=== PATIENT | female | born 1935 | race Caucasian/White ===

== ENCOUNTER 2017-05-22 09:22 | Observation (INO) | payer OTHER ==
--- NOTE | 2017-05-22 01:10 | GHP ---
[f rep st] PREOP HISTORY AND PHYSICAL DATE OF ADMISSION: 05/22/2017 CURRENT COMPLAINTS: Left shoulder pain. HISTORY OF PRESENT ILLNESS: The patient is an 81-year-old female who had previously undergone a lef t reverse total shoulder arthroplasty, was slow with recovery with regard to physical therapy. Subs equent x-rays revealed that the hemispherical head component has come loose from its base plate. Анна duffy wishes to have surgery in order to resolve the problem. ALLERGIES: Include beta blockers, codeine, corticosteroids, enalapril, nifedipine, penicillins, Pne umovax and sulfa medications. CURRENT MEDICATIONS: Include aspirin, atorvastatin, Benicar, Bystolic, furosemide, Januvia, levothy roxine, Lumigan, metformin, Nexium, omeprazole, oxycodone, and Uloric. PRIOR MEDICAL PROBLEMS: Include arthritis, diabetes, high cholesterol, coronary artery disease, hig h blood pressure, and thyroid problems with Raynaud and vitiligo. PRIOR SURGERIES: Include a left shoulder x2, cholecystectomy, right total hip, left total knee, malick ateral cataract surgery. Rectocele surgery. Right total knee. Right rotator cuff repair. Hystere ctomy and oophorectomy. Lumpectomy. Appendectomy. SOCIAL HISTORY: She lists no smoking or alcohol history. PHYSICAL EXAM: HEENT: Patient's pupils are equal, round, and reactive to light. CHEST: Clear to auscultation. HEART: Regular rate and rhythm. ABDOMEN: Soft and nontender. MUSCULOSKELETAL: Le ft arm has no pain to passive range of motion. She has weakness to external rotation and abduction. X-ray exam reveals the hemispherical component disarticulated from the base plate. ASSESSMENT AND PLAN: The patient is status post left reverse total shoulder failure. Plan is to go to the operating room for revision of the hemispherical component. /[id number]/MODL
--- NOTE | 2017-05-22 07:15 | PDHPUP ---
History & Physical Update H&P update statement: This history and physical update is based on an assessment of the patient which was completed after admission or registration (within 24 hours), but prior to the surgery/procedure. H&P update: H&P reviewed & patient examined, no change in patient's condition since H&P completed
[~2017-05-22 09:22] MED LIST: NALOXONE HCL 0.4 MG/ML INJ IVP PRN; ONDANSETRON 4 MG/2 ML VIAL IVP PRN; ROPIVACAINE 0.2% 80 MG, EPINEPHrine 0.2 MG, KETOROLAC TROMETHAMINE 30 MG, morphINE 10 M... IU ONE; VANCOMYCIN HCL/NORMAL SALINE 250 ML IV ONE; fentaNYL 100 MCG/2 ML INJ IVP PRN
[2017-05-22] MEDS ORDERED: THROMBIN (BOVINE) 5,000 UNIT VIAL TP ONE (10:21)
[2017-05-22] MEDS ORDERED: CALCIUM CHLORIDE 1 GM/10 ML INJ ONE (10:21)
[2017-05-22] MEDS ORDERED: POLYMYXIN B SULFATE 500,000 UNIT/10 ML SYR IRR ONE (10:21)
[2017-05-22] MEDS ORDERED: BUPIVACAINE/EPI 0.5% 30 ML SDV ONE (10:21)
[2017-05-22] MEDS ORDERED: BACITRACIN 50,000 UNITS/10 ML SYR IRR ONE (10:22)
[2017-05-22] MEDS ORDERED: LR 1,000 ML IV ONE (12:07)
[2017-05-22 12:52] LABS: % IMMATURE GRANULYOCYTES 0.2 % (0.0-1.1); ABSOLUTE IMMATURE GRANULOCYTES 0.01 10^3/uL (0.00-0.10); ADD DIFF? NO; ADD MORPH? NO; ADD SCAN? NO; ATYPICAL LYMPHOCYTE FLAG 10 (0-99); FRAGMENT RBC FLAG 0 (0-99); HEMATOCRIT 36.3 % (38.0-47.0); HEMOGLOBIN 12.1 g/dL (12.6-16.3); LEFT SHIFT FLG 0 (0-99); LIPEMIA HEMOLYSIS FLAG 80 (0-99); MEAN CELL HEMOGLOBIN 30.8 pg (27.9-34.1); MEAN CELL HEMOGLOBIN CONCENTR. 33.3 g/dL (32.4-36.7); MEAN CELL VOLUME 92.4 fL (81.5-99.8); MEAN PLATELET VOLUME 10.1 fL (8.7-11.7); PLATELET CLUMPS FLAG 0 (0-99); PLATELET COUNT 290 10^3/uL (150-400); RED BLOOD CELL COUNT 3.93 10^6/uL (4.18-5.33); RED CELL DISTRIBUTION WIDTH 14.1 % (11.5-15.2)
[2017-05-22] MEDS: LR 1,000 ML IV SCH (13:02)
[2017-05-22 13:06] LABS: ANION GAP 14 mEq/L (8-16); CALCIUM 10.4 mg/dL (8.5-10.4); CARBON DIOXIDE 26 mEq/l (22-31); CHLORIDE 103 mEq/L (97-110); CREATININE 0.8 mg/dL (0.6-1.0); GLOMERULAR FILTRATION RATE > 60; GLUCOSE 118 mg/dL (70-100); POTASSIUM 3.8 mEq/L (3.5-5.2); SODIUM 143 mEq/L (134-144)
[2017-05-22] MEDS ORDERED: VANCOMYCIN 1 GM/NS 250 ML BAG IV ONE (13:20)
--- NOTE | 2017-05-22 13:44 | PDANEPAE ---
ANE History of Present Illness 81 year old female presents for partial revision of left total shoulder. ANE Past Medical History - Cardiovascular History Hx Hypertension: Yes Hx Arrhythmias: No Hx Chest Pain: No Hx Coronary Artery / Peripheral Vascular Disease: Yes Hx CHF / Valvular Disease: No Cardiovascular History Comment: CAD. HYPERCHOLESTEROLEMIA - Pulmonary History Hx COPD: No Hx Asthma/Reactive Airway Disease: No Hx Recent Upper Respiratory Infection: No Hx Oxygen in Use at Home: No Hx Sleep Apnea: No Sleep Apnea Screening Result - Last Documented: Positive Pulmonary History Comment: ROBERT POSITIVE MILD DOESN'T USE CPAP - Neurologic History Hx Cerebrovascular Accident: No Hx Seizures: No Hx Dementia: No - Endocrine History Hx Diabetes: Yes Hypothyroid: Yes Hyperthyroid: No Obesity: no Endocrine History Comment: NIDDM - Renal History Hx Renal Disorders: No - Liver History Hx Hepatic Disorders: No - Neurological & Psychiatric Hx Hx Neurological and Psychiatric Disorders: No - Cancer History Hx Cancer: No Cancer History Comment: 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 LT TOTAL SHLDR REPLACEMENT HAS COME OUT OF PLACE. RAYNAUDS - Chronic Pain History Chronic Pain: Yes (LEFT SHOULDER) - Surgical History [facility] Sur[facility]. 2 RECTOCELE'S. 3 MISCARRIAGES AND D&C. HYSTERECTOMY AND APPY. LEFT KNEE SCOPE. BILATERAL KNEE REPLACEMENTS. RIGHT HIP REPLACEMENT. BREAST BIOPSY X2 ON LEFT. ROTATOR CUFF ON RIGHT SIDE. STENTS PLACED 01/2000 AND 02/2000 X4. BILATERAL CATARACTS. ANE Review of Systems - Exercise capacity Exercise capacity: <4 METS METS (RN): 3 METS ANE Patient History - Allergies Allergies/Adverse Reactions: Beta-Blockers (Beta-Adrenergic Bloc Allergy (Severe, Verified 07/10/16 09:35) DEPRESSION enalapril [Enalapril] Allergy (Severe, Verified 07/10/16 09:35) COUGH nifedipine [From Adalat] Allergy (Severe, Verified 07/10/16 09:35) HEADACHE Penicillins Allergy (Severe, Verified 07/10/16 09:35) Hives pneumococcal 23-valent polysacchari [From Pneumovax 23] Allergy (Severe, Verified 07/10/16 09:35) WHEEZING AND LOCAL ERYTHEMA Sulfa (Sulfonamide Antibiotics) Allergy (Severe, Verified 07/10/16 09:35) Hives codeine [Codeine] Allergy (Verified 07/10/16 09:35) PRASOCIN Allergy (Severe, Uncoded 01/12/11 14:48) NASAL CONGESTION SALISILATE Allergy (Severe, Uncoded 01/12/11 14:48) WHEEZING AND HOARSENESS - Home Medications Home medications: home medication list seen and reviewed Home Medications: Atorvastatin Calcium [Lipitor 40 mg (*)] 40 mg PO DAILY 09/14/14 [Last Taken 04/30] Bimatoprost 0.01% [Lumigan 0.01% (*)] 1 drops EACHEYE HS 09/14/14 [Last Taken ] Levothyroxine [Synthroid 50 mcg (*)] 50 mcg PO DAILY06 09/14/14 [Last Taken 05/31] Febuxostat [Uloric] 40 mg PO HS 05/21/17 [Last Taken 05/21/17] Furosemide [Lasix 20 MG (*)] 20 mg PO DAILY 05/21/17 [Last Taken 05/21/17] Olmesartan Medoxomil [Benicar] 40 mg PO DAILY 05/21/17 [Last Taken 05/22/17] SITAGLIPTIN PHOSPHATE [Januvia 50 mg] 50 mg PO DAILY 05/21/17 [Last Taken ] metFORMIN HCL [Glucophage 500 mg (*)] 1,000 mg PO BIDMEAL 05/21/17 [Last Taken 05/21/17] - NPO status NPO Status: no food or drink >8 hours NPO Since - Liquids (Date): 05/21/17 NPO Since - Liquids (Time): 15:00 NPO Since - Solids (Date): 05/21/17 NPO Since - Solids (Time): 15:00 - Smoking Hx Smoking Status: Never smoked - Alcohol Use Alcohol Use: Sober - Family Anes Hx Family Anes Hx: neg - N/A Family Hx Anesthesia Complications: NONE ANE Labs/Vital Signs - Labs Result Diagrams: 05/22/17 12:40 05/22/17 12:40 - Vital Signs Vital Signs: reviewed preoperatively; see RN documention for details Blood Pressure: 156/84 Heart Rate: 58 Respiratory Rate: 18 O2 Sat (%): 95 Height: 147.32 cm Weight: 53.977 kg ANE Physical Exam - ASA Status ASA Status: III
[2017-05-22] MEDS ORDERED: PROPOFOL 200 MG/20 ML VIAL ONE (13:54)
[2017-05-22] MEDS ORDERED: fentaNYL 100 MCG/2 ML INJ ONE ×2 (13:55→15:35)
[2017-05-22] MEDS ORDERED: ROPIVACAINE HCL 150 MG/30 ML INJ ONE (13:55)
[2017-05-22] MEDS ORDERED: ROCURONIUM 100 MG/10 ML VIAL ONE (13:55)
[2017-05-22] MEDS ORDERED: PHENYLEPHRINE HCL 100 MCG/ML SYR ONE ×2 (14:32→15:43)
[2017-05-22] MEDS ORDERED: epHEDrine SULFATE 10 MG/ML SYR ONE ×2 (14:36→15:44)
[2017-05-22] MEDS ORDERED: ONDANSETRON 4 MG/2 ML VIAL ONE (15:35)
[2017-05-22] MEDS ORDERED: SUGAMMADEX SODIUM 200 MG/2 ML VIAL IVP ONE (15:36)
[2017-05-22] MEDS ORDERED: LACTULOSE 20 GM/30 ML UDCUP PO PRN (16:04)
[2017-05-22] MEDS ORDERED: ONDANSETRON 4 MG/2 ML VIAL IVP PRN (16:04)
[2017-05-22] MEDS ORDERED: BISACODYL 10 MG SUPP PR PRN (16:04)
[2017-05-22] MEDS ORDERED: POLYETHYLENE GLYCOL 3350 17 GM PKT PO PRN (16:04)
[2017-05-22] MEDS ORDERED: MAGNESIUM HYDROXIDE 30 ML UDCUP PO PRN (16:04)
--- NOTE | 2017-05-22 16:04 | POSTOPPROG ---
Post Op Note Date of Operation: 05/22/17 Surgeon: Iza Gonzalez Chemical Compounder: coltrain Anesthesia: LMA, Other (Specify) Pre-op Diagnosis: l reverse tsa dislocation Procedure: l reverse tsa head revision Inf/Abcess present in the surg proc area at time of surgery?: No Depth: Deep Incisional (Fascial) EBL: 50-100
[2017-05-22] MEDS ORDERED: VANCOMYCIN HCL/NORMAL SALINE 250 ML IV SCH (16:30)
--- NOTE | 2017-05-22 17:01 | POSTANESTH ---
Post Anesthetic Evaluation Cardiovascular Status: Normal, Stable Respiratory Status: Normal, Stable Level of Consciousness/Mental Status: Can Participate in Eval Pain Control: Adequate, Prn Tx Ordered Nausea/Vomiting Control: Adequate, Prn Tx Ordered Complications Possibly Related to Anesthesia: None Noted
[2017-05-22] MEDS: metFORMIN HCL 500 MG TAB PO SCH ×2 (18:59→20:06)
[2017-05-22] MEDS: KETOROLAC 15 MG/1 ML SDV IVP SCH (18:59)
[2017-05-22] MEDS: traMADol 50 MG TAB PO SCH ×2 (18:59→20:06)
--- NOTE | 2017-05-22 20:03 | GOP ---
[f rep st] OPERATIVE REPORT DATE OF OPERATION: 05/22/2017 SURGEON: Iza Gonzalez MD ENTERPRISE APPLICATION ANALYST: ARMANDO Hester, LSA, whose presence was medically necessary. ANESTHESIA: Endotracheal intubation plus scalene block per Surgeon's request. PREOPERATIVE DIAGNOSIS: Left reverse total shoulder hemisphere dislocation. POSTOPERATIVE DIAGNOSIS: Left reverse total shoulder hemisphere dislocation. PROCEDURE PERFORMED: Left reverse total shoulder hemisphere revision. FINDINGS: INDICATIONS: This is an 81-year-old female who had previously undergone a left total shoulder arthr oplasty which had been doing well. She had some recent pain, and an x-ray exam revealed the hemisph ere to have become dislodged from the baseplate. She wished to have surgery in order to resolve the problem. DESCRIPTION OF PROCEDURE: Patient brought to the operating room after the left side had been identi fied as the correct side by the patient, nurse, physician. Once in the operating room, she was give n a scalene block on the left side and then placed under anesthesia using endotracheal intubation. Once asleep, she was placed in a beach chair position with the left upper extremity sterilely preppe d and draped in usual fashion using GSI solution. Once prepped and draped, using the prior scar, a linear incision was made starting in the anterior portion shoulder near the coracoid and extending t oward the axillary crease. Bleeding was controlled using electrocautery. Using the prior scar asso ciated with the deltopectoral interval, dissection was carried down deep, following layer the coraco brachialis fascia was identified, dissected and retracted medially, gaining access into the joint. The head was easily found and was easily removed. Examination of the plastics associated with the humeral component showed no wear across it. The bas e plate appeared to be intact. Soft tissue dissection was done around the base plate in order to re move scar tissue from around the area. It was thoroughly irrigated with antibiotic solution. A tri al hemispheric head was put into place, noted to fit securely. Therefore, an eccentric 5 mm Glenosp here from [facility] was put into place. Once tapped into place, it was tugged upon bob roujigneshly in order to ensure good fit and solid fixation. It was then impacted again with a secondary impactor in order to hold it in place. The patient's arm was then able to go through a range of motion, appeared to be stable. She did not have laxity through the area. Therefore, the wound was thoroughly irrigated with antibiotic soluti on and was closed in layers to include 0 Vicryl suture for the fascia overlying the capsule and reymundo cobrachialis, with plasmagel placed intra-articularly. The deltopectoral interval was closed with p lasmagel placed deep to the deltopectoral interval. The skin was closed using a combination of 0 Vi cryl and 2-0 Vicryl sutures in subcutaneous layers, and a 3-0 V-Loc suture in a running subcuticular stitch for the skin. The wound was dressed with Steri-Strips, with 10 cc of Marcaine infused aroun d the actual incision itself. The wound was then dressed with Xeroform, 4 x 4, and Tegaderm. She was completely undraped in the operating room, had a sling placed on the left upper extremity. She was woken up, extubated, transferred onto a stretcher, and sent to recovery room in good conditi on. This is a 23-hour observation operation report. /[id number]/MODL
[2017-05-22] MEDS: SENNOSIDES/DOCUSATE SODIUM TAB PO SCH (20:06)
[2017-05-22] MEDS: BIMATOPROST 0.01% 2.5 ML OPHT.BTL EACHEYE SCH (20:34)
[2017-05-22] MEDS ORDERED: NON-FORMULARY NEW DRUG (Febuxostat [Uloric] 40 MG) PO SCH ×2 (21:00)
[2017-05-23] MEDS: KETOROLAC 15 MG/1 ML SDV IVP SCH ×3 (02:09→11:12)
[2017-05-23] MEDS: LEVOTHYROXINE 50 MCG TAB PO SCH (06:17)
[2017-05-23] MEDS: traMADol 50 MG TAB PO SCH ×3 (06:18→17:42)
[2017-05-23] MEDS: SENNOSIDES/DOCUSATE SODIUM TAB PO SCH ×2 (08:03→22:19)
[2017-05-23] MEDS: ATORVASTATIN CALCIUM 40 MG TAB PO SCH (08:03)
[2017-05-23] MEDS: HYDROCODONE/APAP 5/325 TAB PO PRN ×2 (08:03→22:20)
[2017-05-23] MEDS: LR 1,000 ML IV SCH (08:07)
[2017-05-23] MEDS: FUROSEMIDE 20 MG TAB PO SCH (08:14)
[2017-05-23] MEDS: OLMESARTAN MEDOXOMIL 20 MG TAB PO SCH (08:14)
[2017-05-23] MEDS ORDERED: NON-FORMULARY NEW DRUG (Olmesartan Medoxomil [Benicar] 40 MG) PO SCH ×2 (09:00)
--- NOTE | 2017-05-23 12:06 | SOAPPROG ---
SOAP Progress Note Assessment/Plan: Assessment: Plan\\ Continue IVF, encourage PO intake Will stay today secondary to BP and dizziness, recheck tomorrow for discharge '[id number] 05/23/17 12:05 Subjective: Pt has some dizziness when she stands, some low BP today. Pain is minimal Objective: Vital Signs Temp Pulse Resp BP Pulse Ox 36.8 C 66 16 86/56 L 95 05/23/17 11:41 05/23/17 11:41 05/23/17 11:41 05/23/17 11:41 05/23/17 11:41 Laboratory Results 05/22/17 12:40 05/22/17 12:40 05/22/17 05/23/17 05/24/17 05:59 05:59 05:59 Intake Total 980 Output Total 440 Balance 540 Dressing CDI, sensation intact, NVI, radial pulse 2+ and regular - Time Spent With Patient Time Spent With Patient: 10 - Pending Discharge Pending Discharge Within 24 Hours: No Pending Discharge Within 48 Hours: Yes Pending Discharge Date: 05/25/17 Pending Discharge Time: 11:00 ICD10 Worksheet Patient Problems: Problems Problem Status Onset Rotator cuff tear, left Acute
[2017-05-23] MEDS ORDERED: VANCOMYCIN HCL/NORMAL SALINE 250 ML IV SCH (13:30)
[2017-05-23] MEDS: metFORMIN HCL 500 MG TAB PO SCH (17:43)
[2017-05-23] MEDS ORDERED: NON-FORMULARY NEW DRUG (Febuxostat [Uloric] 40 MG) PO SCH (21:00)
[2017-05-23] MEDS: BIMATOPROST 0.01% 2.5 ML OPHT.BTL EACHEYE SCH (22:21)
[2017-05-24] MEDS: traMADol 50 MG TAB PO SCH ×3 (01:23→12:02)
[2017-05-24] MEDS: LEVOTHYROXINE 50 MCG TAB PO SCH (05:41)
[2017-05-24 07:19] VITALS: TEMP 97.4
[2017-05-24] MEDS ORDERED: ONDANSETRON 4 MG/2 ML VIAL IVP PRN (07:21)
[2017-05-24] MEDS: OLMESARTAN MEDOXOMIL 20 MG TAB PO SCH (08:18)
[2017-05-24] MEDS: FUROSEMIDE 20 MG TAB PO SCH (08:19)
[2017-05-24] MEDS: metFORMIN HCL 500 MG TAB PO SCH (08:19)
[2017-05-24] MEDS: ATORVASTATIN CALCIUM 40 MG TAB PO SCH (08:19)
[2017-05-24] MEDS: SENNOSIDES/DOCUSATE SODIUM TAB PO SCH (08:19)
--- NOTE | 2017-05-24 11:47 | SOAPPROG ---
DELFINO Progress Note Assessment/Plan: Assessment: Plan\\ D/C home today 05/23/17 12:05 05/24/17 11:47 Subjective: Doing well, pain controlled Objective: Vital Signs Temp Pulse Resp BP Pulse Ox 36.3 C 65 20 117/63 91 L 05/24/17 07:17 05/24/17 07:17 05/24/17 07:17 05/24/17 08:18 05/24/17 07:17 Laboratory Results 05/22/17 12:40 05/22/17 12:40 05/23/17 05/24/17 05/25/17 05:59 05:59 05:59 Intake Total 980 900 Output Total 440 400 Balance 540 500 Wound CDI, NVI - Time Spent With Patient Time Spent With Patient: 10 - Pending Discharge Pending Discharge Within 24 Hours: Yes Pending Discharge Within 48 Hours: No Pending Discharge Date: 05/25/17 Pending Discharge Time: 11:00 ICD10 Worksheet Patient Problems: Problems Problem Status Onset Rotator cuff tear, left Acute
[2017-05-24 11:51] VITALS: BP 125/87; PULSE 89; RESP 18; O2SAT 90
== END 2017-05-24 12:39 | disposition home or self-care (01) ==
LOC: F3N 11:22
PROVIDERS: ADMIT Orthopaedic Surgery; ATTEND Orthopaedic Surgery
PROC: 0RWK0JZ Revision of Synthetic Substitute in Left Shoulder Joint, Open Approach (ICD-10-PCS; principal; 2017-05-22 13:00)
DX: T84.428A Displacement of other internal orthopedic devices, implants and grafts, initial encounter (principal); Z96.612 Presence of left artificial shoulder joint; I10 Essential (primary) hypertension; I25.10 Atherosclerotic heart disease of native coronary artery without angina pectoris; K21.9 Gastro-esophageal reflux disease without esophagitis; M10.9 Gout, unspecified; E11.9 Type 2 diabetes mellitus without complications; Z96.643 Presence of artificial hip joint, bilateral; Z96.651 Presence of right artificial knee joint; Z88.0 Allergy status to penicillin; Z88.2 Allergy status to sulfonamides
CPT/HCPCS: 23473; 73030; C1776; J1885; J2370; J2405; J2704; J2795; J3010; J3370; J0171

== ENCOUNTER 2017-06-17 16:48 | Emergency (ER) | payer OTHER ==
[2017-06-17 17:04] VITALS: TEMP 98.4
--- NOTE | 2017-06-17 17:45 | EDPHY ---
H & P Time Seen by Provider: 06/17/17 16:58 HPI/ROS: 81-year-old female presents complaining of pain to her left 2nd toe and the ball of her foot underlying her 2nd and 3rd toe. She does not recall any injury, she has no redness no fevers no chills no bruising. She states she has a prior history of gout that tends to only affect her right great toe. She does not recall the last time that she has had an episode of gout. Review of systems As per HPI General no fever no chills no weakness HEENT no eye pain no eye discharge. No eye redness, no sore throat Respiratory no cough, no shortness of breath Cardiac no chest pain, no peripheral edema GI no abdominal pain, no diarrhea, no constipation, no nausea, no vomiting no flank pain, no hematuria, no dysuria Musculoskeletal no myalgias, positive joint pain Heme no easy bruising, no easy bleeding Endo no polyuria, no polydipsia Skin no rashes, no pruritus Neuro no syncope, no dizziness, no headaches Psych is no suicidal ideation, no homicidal ideation Past Medical/Surgical History: Hypertension, hyperlipidemia, hypothyroidism, diabetes type 2 Smoking Status: Never smoked Physical Exam: 81-year-old female Alert and oriented in no acute distress nontoxic appearance, afebrile Atraumatic normocephalic Neck no JVD Lungs clear to auscultation, no respiratory distress Heart regular rate and rhythm Extremities no cyanosis clubbing edema Left foot-no swelling, no erythema no ecchymosis Good capillary refill, tenderness to palpation at base of 2nd toe and on plantar surface underlying distal 2nd and 3rd metatarsal heads No palpable mass, no fluctuance, no rash, no ecchymosis Constitutional: Initial Vital Signs Temperature (C) 36.9 C 06/17/17 17:00 Heart Rate 69 06/17/17 17:00 Respiratory Rate 16 06/17/17 17:00 Blood Pressure 138/76 H 06/17/17 17:00 O2 Sat (%) 94 06/17/17 17:00 O2 Delivery Mode Room Air Allergies/Adverse Reactions: Beta-Blockers (Beta-Adrenergic Bloc Allergy (Severe, Verified 07/10/16 09:35) DEPRESSION enalapril [Enalapril] Allergy (Severe, Verified 07/10/16 09:35) COUGH nifedipine [From Adalat] Allergy (Severe, Verified 07/10/16 09:35) HEADACHE Penicillins Allergy (Severe, Verified 07/10/16 09:35) Hives pneumococcal 23-valent polysacchari [From Pneumovax 23] Allergy (Severe, Verified 07/10/16 09:35) WHEEZING AND LOCAL ERYTHEMA Sulfa (Sulfonamide Antibiotics) Allergy (Severe, Verified 07/10/16 09:35) Hives codeine [Codeine] Allergy (Verified 07/10/16 09:35) PRASOCIN Allergy (Severe, Uncoded 01/12/11 14:48) NASAL CONGESTION SALISILATE Allergy (Severe, Uncoded 01/12/11 14:48) WHEEZING AND HOARSENESS Home Medications: Medication Instructions Recorded Atorvastatin Calcium [Lipitor 40 40 mg PO DAILY 09/14/14 mg (*)] Bimatoprost 0.01% [Lumigan 0.01% 1 drops EACHEYE HS 09/14/14 (*)] Levothyroxine [Synthroid 50 mcg 50 mcg PO DAILY06 09/14/14 (*)] Febuxostat [ULORIC] 40 mg PO HS 05/21/17 Furosemide [Lasix 20 MG (*)] 20 mg PO DAILY 05/21/17 Olmesartan Medoxomil [Benicar] 40 mg PO DAILY 05/21/17 SITAGLIPTIN PHOSPHATE [Januvia 50 50 mg PO DAILY 05/21/17 mg] metFORMIN HCL [Glucophage 500 mg 1,000 mg PO BIDMEAL 05/21/17 (*)] Hydrocodone/APAP 5/325 [Bethel 1 - 2 tab PO Q3HRS PRN #0 tab 05/24/17 5/325 (*)] Medical Decision Making - Diagnostics Imaging Results: Imaging Impressions Foot X-Ray 06/17/17 17:16 Impression: 1. No evidence for acute fracture. Mild degenerative change first metatarsophalangeal joint. Soft tissue calcification medial to the first metatarsal head, which could be secondary to calcific deposition disease or gout. 2. Possible stress reaction middiaphysis third metatarsal. ED Course/Re-evaluation: Patient seen and evaluated for left foot pain that began today. Physical exam is unremarkable other than tenderness to palpation. Differential diagnosis considered Gout, neuroma, fracture, sprain, arthritis X-ray negative for fracture Noted calcific deposition lateral to 1st metatarsal head No outward signs of gout Impression Possible neuroma given location of pain between 2nd and 3rd metatarsal heads on the plantar surface Plan Ibuprofen or acetaminophen Follow-up with PCP Given podiatry referral Departure - Departure Disposition: Home, Routine, Self-Care Clinical Impression: Left foot pain Condition: Good Instructions: Arthralgia (ED), Ruslan Neuroma (ED) Referrals: Judi Brito MD [Primary Care Provider] - As per Instructions Denys Fernandes DPM [Doctor of Podiatric Medicine] - As per Instructions
[2017-06-17 18:18] VITALS: BP 130/78; PULSE 72; RESP 18; O2SAT 95
== END 2017-06-17 18:17 | disposition home or self-care (01) ==
LOC: CED 16:48
DX: M79.672 Pain in left foot (principal); I10 Essential (primary) hypertension; E11.9 Type 2 diabetes mellitus without complications; Z79.84 Long term (current) use of oral hypoglycemic drugs
CPT/HCPCS: 73630-PO

== ENCOUNTER → 2017-08-15 | Outpatient (CLI) | payer OTHER | LOC: CIMAGING 15:18 | PROVIDERS: ATTEND Internal Medicine | DX: N26.1 Atrophy of kidney (terminal) (principal) | CPT/HCPCS: 76770-PO ==

== ENCOUNTER 2017-12-22 19:26 | Emergency (ER) | payer OTHER ==
[2017-12-22] MEDS ORDERED: LET GEL TOPICAL 1 EA SYR TP ONE ×2 (19:42→19:43)
[2017-12-22] MEDS ORDERED: ACETAMINOPHEN 325 MG TAB PO ONE (19:42)
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
[2017-12-22 20:09] VITALS: RESP 14; TEMP 97.9
[2017-12-22 20:53] VITALS: BP 112/86; PULSE 64; O2SAT 95
== END 2017-12-22 20:42 | disposition home or self-care (01) ==
LOC: CED 19:26
PROC: 2W2EX4Z Dressing of Right Hand using Bandage (ICD-10-PCS; principal; 2017-12-22)
DX: T23.231A Burn of second degree of multiple right fingers (nail), not including thumb, initial encounter (principal); E11.9 Type 2 diabetes mellitus without complications; T31.0 Burns involving less than 10% of body surface; X08.8XXA Exposure to other specified smoke, fire and flames, initial encounter; Y92.22 Religious institution as the place of occurrence of the external cause

== ENCOUNTER → 2018-07-15 | Outpatient (CLI) | payer OTHER | LOC: BHFA 13:00 | PROVIDERS: ATTEND Internal Medicine Cardiovascular Disease | DX: R00.2 Palpitations (principal); R01.1 Cardiac murmur, unspecified ==

== ENCOUNTER → 2018-07-30 | Outpatient (CLI) | payer OTHER | LOC: BHFA 09:00 | PROVIDERS: ATTEND Internal Medicine Cardiovascular Disease | DX: I49.3 Ventricular premature depolarization (principal); I25.10 Atherosclerotic heart disease of native coronary artery without angina pectoris | CPT/HCPCS: 78452; 93017; A9500 ==

== ENCOUNTER 2019-02-19 08:22 | Emergency (ER) | payer OTHER ==
[2019-02-19] MEDS ORDERED: OXYCODONE/APAP 5/325 TAB PO ONE (09:05)
[2019-02-19] MEDS ORDERED: IOPAMIDOL (ISOVUE 370) 100 ML BTL IV ONE (10:16)
--- NOTE | 2019-02-19 10:18 | EDPHY ---
H & P Time Seen by Provider: 02/19/19 08:43 HPI/ROS: CHIEF COMPLAINT: Back pain HISTORY OF PRESENT ILLNESS: Patient states yesterday late in the afternoon she had a sudden onset of back pain. She described it initially both high and low in the mid back. Now she describes it as left midback pain. She states the pain comes and goes and will be severe but last for only a few seconds. There is no radiation. There is no pain in the abdomen or groin. She denies any urinary symptoms. The pain began yesterday after her usual "Silver sneakers" exercise program. She does this twice a week and has done so for years. She did not experience any pain or trauma during the workout. REVIEW OF SYSTEMS: Constitutional: No fever, no chills. Eyes: No discharge. ENT: No sore throat. Cardiovascular: No chest pain, no palpitations. Respiratory: No cough, no shortness of breath. Gastrointestinal: No abdominal pain, no vomiting. Genitourinary: No dysuria. Musculoskeletal: Per HPI Skin: No rashes. Neurological: No headache. General Appearance: Alert, no distress. Eyes: Pupils equal and round no pallor or injection. ENT, Mouth: Mucous membranes moist. Respiratory: There are no retractions, lungs are clear to auscultation. Patient when seen and states pain increased with inspiration. Cardiovascular: Regular rate and rhythm. Gastrointestinal: Abdomen is soft and nontender, no masses, bowel sounds normal. Left CVA tenderness to palpation. Neurological: Awake, alert, no focal neurologic deficits. Normal strength and sensation all 4 extremities. Skin: Warm and dry, no rashes. Skin normal without lesions over area of maximal pain. Musculoskeletal: Neck is supple nontender. Extremities are symmetrical, full range of motion, no edema. Psychiatric: Patient is oriented X 3, there is no agitation. Medical/surgical history: Coronary artery disease with NM/stents. Raynaud's, vitiligo, hypothyroidism, gout, arthritis, degenerative disc disease, high cholesterol. Surgeries include cholecystectomy, appendectomy, knee replacement , hysterectomy, left shoulder replacement, right hip replacement. Social history: Nonsmoker Smoking Status: Never smoked Constitutional: Initial Vital Signs Temperature (C) 36.5 C 02/19/19 08:33 Heart Rate 64 02/19/19 08:33 Respiratory Rate 18 02/19/19 08:33 Blood Pressure 199/86 H 02/19/19 08:33 O2 Sat (%) 94 02/19/19 08:33 O2 Delivery Mode Room Air Allergies/Adverse Reactions: Beta-Blockers (Beta-Adrenergic Bloc Allergy (Severe, Verified 12/22/17 20:02) DEPRESSION enalapril [Enalapril] Allergy (Severe, Verified 12/22/17 20:02) COUGH nifedipine [From Adalat] Allergy (Severe, Verified 12/22/17 20:02) HEADACHE Penicillins Allergy (Severe, Verified 12/22/17 20:02) Hives pneumococcal 23-valent polysacchari [From Pneumovax 23] Allergy (Severe, Verified 12/22/17 20:02) WHEEZING AND LOCAL ERYTHEMA Sulfa (Sulfonamide Antibiotics) Allergy (Severe, Verified 12/22/17 20:02) Hives SUNITHA Inhibitors Allergy (Verified 02/19/19 08:39) Calcium Channel Blocking Agent Dilt Allergy (Verified 02/19/19 08:39) codeine [Codeine] Allergy (Verified 12/22/17 20:02) hydrocodone Allergy (Verified 02/19/19 08:39) PRASOCIN Allergy (Severe, Uncoded 01/12/11 14:48) NASAL CONGESTION SALISILATE Allergy (Severe, Uncoded 01/12/11 14:48) WHEEZING AND HOARSENESS Home Medications: Medication Instructions Recorded Atorvastatin Calcium [Lipitor 40 40 mg PO DAILY 09/14/14 mg (*)] Bimatoprost 0.01% [Lumigan 0.01% 1 drops EACHEYE 09/14/14 (*)] Levothyroxine [Synthroid 50 mcg 50 mcg PO DAILY06 09/14/14 (*)] Febuxostat [ULORIC] 40 mg PO HS 05/21/17 Olmesartan Medoxomil [Benicar] 40 mg PO DAILY 05/21/17 Bystolic 12/22/17 Furosemide 02/19/19 oxyCODONE HCL/ACETAMINOPHEN 1 each PO Q6HRS PRN 3 Days #10 02/19/19 [Percocet 5-325 mg Tablet] tablet Medical Decision Making - Diagnostics Imaging Results: Imaging Impressions Chest X-Ray 02/19/19 09:06 Impression: Hypoventilatory chest with basilar atelectasis. Lumbar Spine X-Ray 02/19/19 09:06 Impression: 1. No acute findings in the lumbar spine. 2. Multilevel degenerative change and spondylolistheses. 3. Additional findings as above. Chest/Thorax CTA 02/19/19 10:09 Impression: 1. No definite pulmonary thromboemboli. 2. Moderate hiatal hernia. 3. Atherosclerotic aorta and coronary atherosclerosis without aneurysm. 4. No pneumonia or pleural effusion. Findings and recommendations discussed with Emergency Department physician, Sofiya Rogel MD at 1105 hours, 02/19/2019. Final report concurs with initial preliminary interpretation. Abdomen/Pelvis CT 02/19/19 10:10 Impression: 1. No nephrolithiasis or hydronephrosis. 2. Atherosclerotic aorta and iliac arteries without aneurysm. 3. Severe degenerative changes lumbar spine. 4. Moderate hiatal hernia. 5. Prior cholecystectomy. 6. Sigmoid diverticulosis without diverticulitis. Attention: This CT examination is specifically designed to evaluate patients who are clinically suspected of having acute obstructive uropathy. This examination does not use radiographic contrast, and as such, provides only a limited evaluation of the abdomen, pelvis and retroperitoneum. If there is further clinical suspicion for pathological conditions other than obstructive uropathy, a complete CT evaluation of the abdomen and pelvis utilizing intravenous, oral, and rectal contrast should be considered. Findings and recommendations discussed with Emergency Department physician, Sofiya Rogel MD at 1105 hours, 02/19/2019. Final report concurs with initial preliminary interpretation. Imaging: Discussed imaging studies w/ jerker Radiologist ED Course/Re-evaluation: Chest x-ray with no acute findings. Lumbar spine with degenerative changes, spondylolisthesis, no acute findings. 10:45 a.m. re-evaluate patient after CT scans performed. Awaiting results. Patient comfortable, resting, no complaints. Eleven re-evaluation. Patient states the pain just happened but is now gone again. Again locates to the left CVA region with no rashes or lesions. Differential Diagnosis: Differential diagnosis includes but is not limited to pneumonia, pulmonary embolism, kidney stone, pyelonephritis, shingles, musculoskeletal back pain, radiculopathy. After evaluation no clear cause of patient's intermittent left flank pain. Likely musculoskeletal in nature and may relate to her significant degenerate disc disease. Could also represent early shingles although no rash or viral prodrome. No evidence of a significant cardiopulmonary or intra- abdominal cause. No kidney stones, no obvious urinary tract symptoms or leukocytes however UA is nitrite positive and culture sent. Will send home with small amount of Percocet to be used as needed for pain. Encouraged to follow up with primary care physician for early recheck. Reviewed return precautions in detail. Stable for discharge. - Data Points Laboratory Results: 02/19/19 09:49 POC Sodium 142 mEq/L mEq/L (135-145) POC Potassium 3.7 mEq/L mEq/L (3.3-5.0) POC Chloride 105.0 mEq/L mEq/L (97-110) POC Total CO2 29 mEq/L mEq/L (22-31) POC BUN 22 mg/dL mg/dL (7-23) POC Creatinine 0.7 mg/dL mg/dL (0.6-1.0) POC Glucose 118 mg/dL H mg/dL (70-100) POC Calcium 9.5 mg/dL mg/dL (8.5-10.4) Medications Given: Discontinued Medications Oxycodone/Acetaminophen (Percocet 5/325) 1 tab PO EDNOW ONE Stop: 02/19/19 09:06 Last Admin: 02/19/19 09:28 Dose: 1 tab Point of Care Test Results: CBC CBC Collection Date 02/19/19 CBC Collection Time 09:10 WBC 4.69 RBC 4.28 HGB 12.2 HCT 37.7 PLT 231 Neut # 2.77 Neut 59 LYMPH # 1.29 LYMPH 27.5 MCV 88.1 Chemistry 02/19/19 09:49 POC Sodium 142 mEq/L mEq/L (135-145) POC Potassium 3.7 mEq/L mEq/L (3.3-5.0) POC Chloride 105.0 mEq/L mEq/L (97-110) POC Total CO2 29 mEq/L mEq/L (22-31) POC BUN 22 mg/dL mg/dL (7-23) POC Creatinine 0.7 mg/dL mg/dL (0.6-1.0) POC Glucose 118 mg/dL H mg/dL (70-100) POC Calcium 9.5 mg/dL mg/dL (8.5-10.4) D-Dimer D-Dimer Collection Date 02/19/19 D-Dimer Collection Time 09:45 D-Dimer (ng/ml) 910 Urine Dip Collection Date 02/19/19 Collection Time 10:09 Specific [place] (1.002-1.030) 1.020 PH (5.0-7.5) 5.5 Leukocytes (Negative) Negative Nitrites (Negative) Positive Protein (Negative) Negative Glucose (Negative) Negative Ketones (Negative) Negative Urobilnogen (0.2-1.0 EU) 0.2 Bilirubin (Negative) Negative Blood (Negative) Negative Departure - Departure Disposition: Home, Routine, Self-Care Clinical Impression: Back pain Qualifiers: Back pain location: thoracic back pain Chronicity: acute Back pain laterality: left Qualified Code(s): M54.6 - Pain in thoracic spine Condition: Fair Instructions: Back Pain (ED) Additional Instructions: Use the Percocet occasionally as needed for back pain, you can try 1/2 of a tablet initially. Ice may be helpful as well. If you developed a rash to this area please return to the emergency department or see your primary care physician as soon as possible. Referrals: Hannah Miguel MD [Primary Care Provider] - As per Instructions Prescriptions: oxyCODONE HCL/ACETAMINOPHEN [Percocet 5-325 mg Tablet] 1 each PO Q6HRS PRN 3 Days #10 tablet PRN Reason: back pain
[2019-02-19 11:49] VITALS: BP 167/93
== END 2019-02-19 11:48 | disposition home or self-care (01) ==
LOC: CED 08:22
DX: M54.6 Pain in thoracic spine (principal)
CPT/HCPCS: 71046; 71275; 72100; 74176; 99285; Q9967; 80048-ER; 85025-QW-ER; 85379-QW-ER